=== PATIENT | male | born 1960 | race Hispanic/Latino ===

== ENCOUNTER 2023-05-10 10:00 | Inpatient (IN) | payer OTHER ==
[2023-05-10 10:52] VITALS: BMI 28.2
[2023-05-18] MEDS ORDERED: PHENYLEPHRINE-NS 100 MCG/ML 10 ML SYRINGE ONE (06:38)
[2023-05-18] MEDS ORDERED: Midazolam HCl 2 mg/2 ml Vial ONE (06:38)
[2023-05-18] MEDS ORDERED: Fentanyl 250 MCG/5 ML VIAL ONE (06:38)
[2023-05-18] MEDS ORDERED: Calcium Chloride 1 GM/10 ML Abboject SYRINGE ONE (06:39)
[2023-05-18] MEDS ORDERED: Rocuronium Bromide 10 MG/ML (10ML VIAL) ONE (06:39)
[2023-05-18] MEDS ORDERED: PROPOFOL 20 ML ONE (06:41)
[2023-05-18] MEDS ORDERED: Lidocaine 1% PF 5 ML VIAL ONE (06:41)
[2023-05-18] MEDS ORDERED: ceFOXitin 1 GM VIAL ONE ×2 (07:37→09:00)
[2023-05-18] MEDS ORDERED: ePHEDrine Sulfate 50 MG/10 ML VIAL ONE (08:48)
[2023-05-18] MEDS ORDERED: Ondansetron PF 4 MG/2 ML Vial ONE (11:27)
[2023-05-18] MEDS ORDERED: Ketorolac Tromethamine 30 MG (1 mL) VIAL ONE (11:27)
[2023-05-18] MEDS ORDERED: Dexamethasone 20 MG/5 ML VIAL ONE (11:28)
[2023-05-18] MEDS ORDERED: fentaNYL PF 100 MCG/2 ML SYRINGE ONE (11:58)
[2023-05-18] MEDS ORDERED: SUGAMMADEX SODIUM 200 MG/2 ML VIAL ONE (12:10)
[2023-05-18] MEDS ORDERED: Sodium Chloride 0.9% 100 ML ONE (12:26)
[2023-05-18] MEDS ORDERED: Dexmedetomidine 200 MCG/2 ML VIAL ONE (12:26)
[2023-05-18] MEDS ORDERED: Bupivacaine/Epinephrine 0.25% 30 ML VIAL ONE (13:35)
[2023-05-18] MEDS ORDERED: Bupivacaine 0.25% HCL 30 ML VIAL ONE (13:47)
[2023-05-18] MEDS ORDERED: Ondansetron PF 4 MG/2 ML Vial IVP PRN (14:37)
[2023-05-18] MEDS ORDERED: Hyoscyamine SL 0.125 MG TAB SL PRN (14:37)
[2023-05-18] MEDS ORDERED: Oxybutynin 5 MG TAB PO PRN (14:37)
[2023-05-18] MEDS ORDERED: diphenhydrAMINE 25 MG CAP PO PRN (14:37)
[2023-05-18] MEDS ORDERED: hydrALAZINE 20 MG/ML VIAL SLOW IVP PRN (14:37)
[2023-05-18] MEDS ORDERED: oxyCODONE 5 MG TAB PO PRN ×2 (14:40)
[2023-05-18] MEDS ORDERED: fentaNYL 50 mcg/mL 1 mL Vial SLOW IVP PRN (14:53)
[2023-05-18 16:13] LABS: Hematocrit 36.9 % (42.0-52.0); Hemoglobin 12.1 g/dL (14.0-18.0); Mean Corpuscular HGB CONC 32.8 g/dL (32.0-36.0); Mean Corpuscular Hemoglobin 30.3 pg (27.0-31.0); Mean Corpuscular Volume 92.3 fl (78.0-98.0); Mean Platelet Volume 9.8 fL (7.4-10.4); Platelet Count 196 10x3/uL (130-400); RBC Distribution Width 12.2 % (11.5-14.5); White Blood Cell (WBC) Count 10.6 10x3/uL (4.8-10.8)
[2023-05-18] MEDS: cefOXitin 1 GM in Sodium Chloride 0.9% 100 ML IVPB SCH (16:18)
[2023-05-18] MEDS: Sodium Chloride 0.9% 1,000 ML IV SCH (16:18)
[2023-05-18] MEDS: traMADol HCl 50 MG TAB PO SCH (16:25)
[2023-05-18] MEDS: Acetaminophen 500 MG TAB PO SCH (16:25)
[2023-05-18 16:35] LABS: Anion Gap 11 mmol/L (10-20); BUN (Urea Nitrogen) 11 mg/dL (8.4-25.7); Calc. Creatinine Clearance 106 mL/min (70-130); Calcium 8.3 mg/dL (7.8-10.44); Carbon Dioxide 22 mmol/L (23-31); Chloride 107 mmol/L (98-107); Estimated GFR 100; Glucose 176 mg/dL (80-115); Potassium 3.7 mmol/L (3.5-5.1); Sodium 136 mmol/L (136-145)
[2023-05-18] MEDS: Ketorolac Tromethamine 30 MG (1 mL) VIAL IVP SCH (17:39)
[2023-05-18] MEDS: Docusate 100 MG CAP PO SCH (20:35)
[2023-05-18] MEDS: Famotidine/PF 20 mg/2ml Vial SLOW IVP SCH (20:36)
[2023-05-19 04:54] LABS: #Monocytes 0.7 thou/uL (0.11-0.59); #Neutrophils 6.2 thou/uL (1.40-6.50); %Lymphocytes 7.7 % (21.0-51.0); %Monocytes 9.7 % (0.0-10.0); %Neutrophils 82.1 % (42.0-75.0); Hematocrit 33.1 % (42.0-52.0); Mean Corpuscular HGB CONC 33.2 g/dL (32.0-36.0); Mean Corpuscular Hemoglobin 30.3 pg (27.0-31.0); Mean Corpuscular Volume 91.2 fl (78.0-98.0); Mean Platelet Volume 10.1 fL (7.4-10.4); Platelet Count 187 10x3/uL (130-400); RBC Distribution Width 12.3 % (11.5-14.5); Red Blood Cell (RBC) Count 3.63 mill/uL (4.70-6.10); White Blood Cell (WBC) Count 7.6 10x3/uL (4.8-10.8)
[2023-05-19 05:15] LABS: Anion Gap 10 mmol/L (10-20); BUN (Urea Nitrogen) 11 mg/dL (8.4-25.7); Calc. Creatinine Clearance 112 mL/min (70-130); Calcium 7.8 mg/dL (7.8-10.44); Carbon Dioxide 24 mmol/L (23-31); Chloride 108 mmol/L (98-107); Estimated GFR 101; Glucose 129 mg/dL (80-115); Potassium 3.7 mmol/L (3.5-5.1); Sodium 138 mmol/L (136-145)
[2023-05-19] MEDS: Amlodipine 10 MG TAB PO SCH (09:58)
[2023-05-19] MEDS: Losartan 25 MG TAB PO SCH (09:58)
[2023-05-19 16:11] VITALS: BP 129/74; TEMP 98
[2023-05-21] MEDS ORDERED: FLU VACC QS2023-24(6MOS UP)/PF 60 MCG/0.5 ML SYRINGE IM ONE (09:00)
== END 2023-05-19 17:35 | disposition home or self-care (01) | DRG 708 ==
LOC: SURG A 05-18 06:16 → SJJU 05-18 15:18
PROVIDERS: ADMIT Urology; ATTEND Urology
PROC: 0VT04ZZ Resection of Prostate, Percutaneous Endoscopic Approach (ICD-10-PCS; principal; 2023-05-18)
PROC: 07TC4ZZ Resection of Pelvis Lymphatic, Percutaneous Endoscopic Approach (ICD-10-PCS; 2023-05-18)
PROC: 0VT34ZZ Resection of Bilateral Seminal Vesicles, Percutaneous Endoscopic Approach (ICD-10-PCS; 2023-05-18)
PROC: 8E0W4CZ Robotic Assisted Procedure of Trunk Region, Percutaneous Endoscopic Approach (ICD-10-PCS; 2023-05-18)
DX: C61 Malignant neoplasm of prostate (principal); I10 Essential (primary) hypertension
CPT/HCPCS: 36415; 80048; 85025; 85027; 88309; C1713; C1776; C1889; C2613; J0665; J0694; J1100; J1885; J2250; J2405; J2704; J3010; J3490; J7050; S0028

== ENCOUNTER 2023-10-18 13:26 | Outpatient (CLI) | payer OTHER ==
[2023-10-18] MEDS ORDERED: Iopamidol-370 76% 500 ML BOT (X-RAY USE) FS ONE (13:39)
== END 2023-10-18 13:27 | disposition home or self-care (01) ==
LOC: RAD 13:26
PROVIDERS: ATTEND Urology
DX: C61 Malignant neoplasm of prostate (principal); N32.89 Other specified disorders of bladder
CPT/HCPCS: 51600; 74430; Q9967